=== PATIENT | female | born 1965 | race Caucasian/White ===

== ENCOUNTER 2016-11-14 09:35 | Outpatient (CLI) | payer OTHER ==
[2016-11-14 18:48] LABS: CHOL/HDL RATIO 2.1 (<4.4); CHOLESTEROL 122 mg/dL; HDL CHOLESTEROL 57 mg/dL; TRIGLYCERIDES 19 mg/dL
[2016-11-14 19:02] LABS: HEMOGLOBIN A1C 0.45 g/dL
[2016-11-14 19:28] LABS: LDL CHOLESTEROL,DIRECT 58 mg/dL
== END 2016-11-14 09:36 | disposition home or self-care (01) ==
LOC: LAB.F 09:35
PROVIDERS: ATTEND Internal Medicine
DX: Z13.220 Encounter for screening for lipoid disorders (principal)
CPT/HCPCS: 36415; 80061; 83036

== ENCOUNTER 2017-03-28 08:00 | Outpatient (CLI) | payer OTHER | END 2017-03-28 08:01 | disposition home or self-care (01) | LOC: LAB.R 08:00 | PROVIDERS: ATTEND Registered Nurse | DX: N76.0 Acute vaginitis (principal); Z11.3 Encounter for screening for infections with a predominantly sexual mode of transmission | CPT/HCPCS: 87491; 87591 ==

== ENCOUNTER 2017-03-28 10:49 | Outpatient (CLI) | payer OTHER ==
[2017-03-29 11:07] LABS: TEST RESULT REPORT
== END 2017-03-28 10:50 | disposition home or self-care (01) ==
LOC: LAB 10:49
PROVIDERS: ATTEND Registered Nurse
DX: N76.0 Acute vaginitis (principal); Z11.3 Encounter for screening for infections with a predominantly sexual mode of transmission
CPT/HCPCS: 36415; 81599; 87389; 87491; 87591

== ENCOUNTER 2017-07-11 14:24 | Outpatient (CLI) | payer OTHER ==
--- NOTE | 2017-07-11 17:20 | XRAY Report ---
DATE OF SERVICE: 07/11/2017 COMPLETE LUMBAR SPINE: 07/11/2017 CLINICAL INDICATION: Back pain. FINDINGS: AP, lateral, oblique, coned down views of the lumbar spine demonstrate moderate degenerative disk and facet disease. There is no evidence of compression fracture or subluxation. The bowel gas pattern is normal. An IUD is incidentally noted in the pelvis. IMPRESSION: MODERATE DEGENERATIVE CHANGES. NO EVIDENCE OF FRACTURE. TD: 07/11/2017 18:19
== END 2017-07-11 14:25 | disposition home or self-care (01) ==
LOC: DI 14:24
PROVIDERS: ATTEND Physician Assistant Medical
DX: M51.36 Other intervertebral disc degeneration, lumbar region (principal); M47.896 Other spondylosis, lumbar region
CPT/HCPCS: 72110

== ENCOUNTER 2019-02-14 08:23 | Outpatient (CLI) | payer OTHER ==
[2019-02-14 10:13] LABS: BASOPHILS % (AUTO) 0.6 %; EOSINOPHILS # (AUTO) 0.2 10^3/uL (0.0-0.7); EOSINOPHILS % (AUTO) 2.5 %; HGB - HEMOGLOBIN 13.7 g/dL (12.0-16.0); LYMPHOCYTES # (AUTO) 1.2 10^3/uL (1.5-3.5); LYMPHOCYTES % (AUTO) 16.6 %; MEAN CORPUSCULAR HEMOGLOBIN 30.6 pg (27.0-31.0); MEAN CORPUSCULAR HGB CONC 32.8 g/dL (32.0-36.0); MEAN CORPUSCULAR VOLUME 93.3 fL (81.0-99.0); MEAN PLATELET VOLUME 10.3 fL (7.9-10.8); MONOCYTES # (AUTO) 0.7 10^3/uL (0.0-1.0); MONOCYTES % (AUTO) 9.6 %; NEUTROPHILS % (AUTO) 70.3 %; PLT - PLATELET COUNT 238 10^3/uL (130-450); RED BLOOD COUNT 4.48 10^6/uL (4.20-5.40); RED CELL DISTRIBUTION WIDTH 12.9 % (12.0-15.0); WHITE BLOOD COUNT 7.1 x10^3/uL (4.8-10.8)
[2019-02-14 10:31] LABS: ALBUMIN 4.4 g/dL (3.2-5.5); ALBUMIN/GLOBULIN RATIO 1.7 (1.0-2.2); BILIRUBIN,TOTAL 0.6 mg/dL (0.2-1.0); CALCIUM 9.9 mg/dL (8.5-10.3); CREATININE 0.7 mg/dL (0.4-1.0)
[2019-02-14 10:47] LABS: THYROID STIMULATING HORMONE 1.9 uIU/mL (0.34-5.60)
[2019-02-14 11:15] LABS: FOLLICLE STIMULATING HORMONE 96.9 mIU/mL
[2019-02-14 11:16] LABS: LUTEINIZING HORMONE 24.07 mIU/mL
== END 2019-02-14 08:24 | disposition home or self-care (01) ==
LOC: LAB.S 08:23
PROVIDERS: ATTEND Physician Assistant Medical
DX: E04.9 Nontoxic goiter, unspecified (principal); R53.83 Other fatigue; N95.9 Unspecified menopausal and perimenopausal disorder; Z13.0 Encounter for screening for diseases of the blood and blood-forming organs and certain disorders involving the immune mechanism; Z51.81 Encounter for therapeutic drug level monitoring; Z13.29 Encounter for screening for other suspected endocrine disorder
CPT/HCPCS: 36415; 80053; 82670; 83001; 83002; 84443; 85025

== ENCOUNTER 2019-02-25 14:57 | Outpatient (CLI) | payer OTHER ==
--- NOTE | 2019-02-25 17:46 | Ultrasound Report ---
Reason: ENLARGED THYROID Procedure Date: 02/25/2019 Accession Number: [id number] / [id number] Procedure: US - Head or Neck Soft Tissue CPT Code: FULL RESULT: EXAM: THYROID ULTRASOUND EXAM DATE: 02/25/2019 04:18 PM. CLINICAL HISTORY: ENLARGED THYROID on physical exam. COMPARISON: None. TECHNIQUE: Real time sonographic imaging of the thyroid was performed by the [facility]. Multiple loss control representative static images were saved for review. FINDINGS: THYROID GLAND: Right Lobe: 6 x 1.5 x 1.9 cm, volume 8.2 cc. Normal background echotexture. Right Lobe Nodules: 3 mm complex cyst superior pole, midpole posterior hypoechoic 6 x 4 x 7 mm heterogeneous nodule avascular, posterior midpole hypoechoic heterogeneous area, question one nodule versus 2 or 3 adjacent small nodules, total area 1.1 x 0.4 x 0.4 cm with vascularity. Left Lobe: 3.9 x 1.1 x 1.1 cm, volume 2.2 cc. Normal background echotexture. Left Lobe Nodules: None. Isthmus: 0.5 cm AP. Isthmic Nodules: Inferior hypoechoic 6 x 6 x 5 mm and 5 x 4 x 3 mm hypoechoic left isthmic nodules. LYMPH NODES: No pathologic adenopathy demonstrated in the central or lateral compartment. Level 3 1.5 x 0.2 x 0.5 cm right lymph node and 0.4 x 0.1 x 0.4 cm left lymph node OTHER: None. IMPRESSION: Multiple small nonspecific nodules are seen in the right thyroid and isthmus as above. Suggest follow-up thyroid ultrasound in 6-12 months. Management recommendations are based on 2015 [place] [employer] Management Guidelines for Adult Patients with Thyroid Nodules and Differentiated Thyroid Cancer. RADIA
== END 2019-02-25 14:58 | disposition home or self-care (01) ==
LOC: DI 14:57
PROVIDERS: ATTEND Physician Assistant Medical
DX: E04.2 Nontoxic multinodular goiter (principal)
CPT/HCPCS: 76536

== ENCOUNTER 2019-08-18 15:01 | Outpatient (CLI) | payer OTHER ==
--- NOTE | 2019-08-26 16:44 | Mammography Report ---
Reason: ROUTINE MAMMO Procedure Date: 08/18/2019 Accession Number: [id number] / [id number] Procedure: MGS - Screening Mammo Dig Bilat CPT Code: Final Report FULL RESULT: EXAM: Screening Mammo Dig Bilat DATE: 08/18/2019 3:20 PM CLINICAL HISTORY: Screening encounter. History of late childbearing. TECHNIQUE: (B) - Bilateral CC, laterally exaggerated CC, MLO views were obtained. COMPARISON: 06/24/2013 through 05/11/2010. PARENCHYMAL PATTERN: (D) - The breast(s) demonstrate(s) heterogeneously dense fibroglandular parenchyma. FINDINGS: There are no suspicious masses, calcifications, or areas of distortion. IMPRESSION: Negative examination. BI-RADS category 1. RECOMMENDATION: (ANNUAL) - Recommend routine annual screening mammography. BI-RADS CATEGORY: (1) - Negative. STANDARD QUALIFYING STATEMENTS: 1. This examination was reviewed with the aid of Computer-Aided Detection (CAD). 2. A negative or benign imaging report should not preclude biopsy if clinically suspicious findings are present. 3. Dense breasts may obscure an underlying neoplasm. 4. This examination was reviewed without the aid of 3D breast imaging (tomosynthesis).
== END 2019-08-18 15:02 | disposition home or self-care (01) ==
LOC: DI.S 15:01
PROVIDERS: ATTEND Physician Assistant Medical
DX: Z12.31 Encounter for screening mammogram for malignant neoplasm of breast (principal)
CPT/HCPCS: 77067

== ENCOUNTER 2019-11-12 16:39 | Outpatient (CLI) | payer OTHER | END 2019-11-12 16:40 | disposition home or self-care (01) | LOC: COV 16:39 | PROVIDERS: ATTEND Family Medicine | DX: R05 Cough (principal) | CPT/HCPCS: 81599 ==

== ENCOUNTER 2019-12-09 14:45 | Outpatient (CLI) | payer OTHER ==
--- NOTE | 2019-12-09 17:32 | Ultrasound Report ---
PROCEDURE: Head or Neck Soft Tissue INDICATIONS: ENLARGED THYROID TECHNIQUE: Real-time scanning was performed of the thyroid gland, with image documentation. COMPARISON: Thyroid ultrasound 02/25/2019 FINDINGS: Right: Thyroid lobe measures 6.3 x 1.6 x 2.0 cm, and is homogeneous in echotexture. Left: Thyroid lobe measures 3.5 x 1.0 x 0.9 cm, and is homogenous in echotexture. Isthmus: 3 mm thick. Nodule number: One Location: Right middle lobe Size: 0.6 x 0.3 x 0.6 cm compared to 0.6 x 0.4 x 0.6 cm. Composition: Cystic Echogenicity: Hypoechoic Shape: wider than tall. Margins: Smooth Echogenic foci: None Total points: 2 ACR TI-RADS category: 2 Nodule number: Two Location: Right inferior lobe Size: 0.6 x 0.3 x 0.5 cm.It is noted that on prior ultrasound, right sided nodules were identified a s 1 lobulated nodule. On today's ultrasound the appear as more distinct as 2 separate foci. Composition: Solid Echogenicity: Hypoechoic Shape: wider than tall. Margins: Lobulated Echogenic foci: None Total points: 4 ACR TI-RADS category: 4 Nodule number: Three Location: Right isthmus Size: 0.4 x 0.4 x 0.7 cm compared to 0.6 x 0.5 x 0.6 cm. Composition: Solid Echogenicity: Hypoechoic Shape: wider than tall. Margins: Irregular Echogenic foci: Punctate Total points: 10 ACR TI-RADS category: 7 Nodule number: 4 Location: Left isthmus Size: 0.6 x 0.3 x 0.5 cm compared to 0.5 x 0.3 x 0.4 cm Composition: Solid Echogenicity: Hypoechoic Shape: wider than tall. Margins: Smooth Echogenic foci: None Total points: 4 ACR TI-RADS category: 4 IMPRESSION: 1. Lesions appear stable in size compared to prior exam. 2. Lesion 1 demonstrates category 2 with no additional follow-up secondary to small size. 3. Lesions 2 and 4 require no additional follow-up secondary to small size. 4. Lesion 3 demonstrates interval follow-up or repeat her for 5 years to document stability. ACR TI-RADS definitions and recommendations: TI-RADS 1 (benign): 0 points. FNA not needed. TI-RADS 2 (not suspicious): 2 points. FNA not needed. TI-RADS 3 (mildly suspicious): 3 points. ? FNA if 2.5 cm or larger, follow up if 1.5 cm or larger (at 1, 3, and 5 years). TI-RADS 4 (moderately suspicious): 4-6 points. ? FNA if 1.5 cm or larger, follow up if 1 cm or larger (at 1, 2, 3, and 5 years). TI-RADS 5 (highly suspicious): 7 points or more. ? FNA if 1 cm or larger, follow up if 0.5 cm or larger (every year for 5 years). Reviewed by: Damaris Ferro MD on 12/09/2019 5:31 PM PDT Approved by: Damaris Ferro MD on 12/09/2019 5:31 PM PDT Station ID: [id number]
== END 2019-12-09 14:46 | disposition home or self-care (01) ==
LOC: DI 14:45
PROVIDERS: ATTEND Physician Assistant Medical
DX: E04.2 Nontoxic multinodular goiter (principal)
CPT/HCPCS: 76536

== ENCOUNTER 2020-04-01 09:12 | Outpatient (CLI) | payer OTHER ==
[2020-04-01 15:26] LABS: BASOPHILS # (AUTO) 0.1 10^3/uL (0.0-0.1); BASOPHILS % (AUTO) 1.1 %; EOSINOPHILS # (AUTO) 0.2 10^3/uL (0.0-0.7); EOSINOPHILS % (AUTO) 3.4 %; HGB - HEMOGLOBIN 13.3 g/dL (12.0-16.0); LYMPHOCYTES # (AUTO) 1.1 10^3/uL (1.5-3.5); LYMPHOCYTES % (AUTO) 24.8 %; MEAN PLATELET VOLUME 10.4 fL (7.9-10.8); MONOCYTES # (AUTO) 0.5 10^3/uL (0.0-1.0); MONOCYTES % (AUTO) 11.4 %; NEUTROPHILS # (AUTO) 2.6 10^3/uL (1.5-6.6); NEUTROPHILS % (AUTO) 58.8 %; PLT - PLATELET COUNT 214 10^3/uL (130-450); RED BLOOD COUNT 4.16 10^6/uL (4.20-5.40); RED CELL DISTRIBUTION WIDTH 12.7 % (12.0-15.0); WHITE BLOOD COUNT 4.4 x10^3/uL (4.8-10.8)
[2020-04-01 15:59] LABS: ALBUMIN 4.2 g/dL (3.2-5.5); ALKALINE PHOSPHATASE 36 IU/L (42-121); ALT ALANINE AMINOTRANSFERASE 17 IU/L (10-60); AST ASPARTATE AMINOTRANSFERASE 19 IU/L (10-42); BUN - BLOOD UREA NITROGEN 17 mg/dL (6-20); CALCIUM 9.1 mg/dL (8.5-10.3); CARBON DIOXIDE - CO2 28 mmol/L (21-32); CHLORIDE 107 mmol/L (101-111); CHOL/HDL RATIO 2.4 (<4.4); CHOLESTEROL 157 mg/dL; CREATININE 0.7 mg/dL (0.4-1.0); GLUCOSE 93 mg/dL (70-100); HDL CHOLESTEROL 66 mg/dL; SODIUM 139 mmol/L (135-145); TOTAL PROTEIN 6.3 g/dL (6.7-8.2)
== END 2020-04-01 09:13 | disposition home or self-care (01) ==
LOC: LAB.S 09:12
PROVIDERS: ATTEND Registered Nurse
DX: F32.9 Major depressive disorder, single episode, unspecified (principal); Z79.890 Hormone replacement therapy; E04.9 Nontoxic goiter, unspecified; G43.909 Migraine, unspecified, not intractable, without status migrainosus
CPT/HCPCS: 36415; 80053; 80061; 83721; 84443; 85025

== ENCOUNTER 2020-05-13 08:25 | Outpatient (CLI) | payer OTHER ==
--- NOTE | 2020-05-13 09:47 | XRAY Report ---
PROCEDURE: Finger(s) LT INDICATIONS: PAIN IN LEFT FINGER TECHNIQUE: AP hand, 3 views of the left index finger(s) acquired. COMPARISON: None FINDINGS: Bones: There is an age-indeterminate, but likely chronic 1 mm ossification noted adjacent to the uln ar side of the left index finger distal interphalangeal joint. No significant overlying soft tissue e marcos. Remainder of the visualized osseous structures appear intact. No dislocation. No suspicious gurpreet ny lesions. Soft tissues: No suspicious soft tissue calcifications. IMPRESSION: Left finger without acute fracture or dislocation. Age-indeterminate but likely chronic 1 mm ossification noted adjacent to the ulnar side of the left i ndex finger distal interphalangeal joint. This may represent sequela of remote injury. Reviewed by: Mann Collins MD on 05/13/2020 9:45 AM PST Approved by: Mann Collins MD on 05/13/2020 9:45 AM PST Station ID: [id number]
== END 2020-05-13 23:59 | disposition home or self-care (01) ==
LOC: DI.S 08:25
PROVIDERS: ATTEND Physician Assistant Medical
DX: M79.645 Pain in left finger(s) (principal)